=== PATIENT | female | born 1965 | race Caucasian/White ===

== ENCOUNTER → 2017-05-14 | Outpatient (CLI) | payer SELFPAY ==
[~2017-05-14] MED LIST: ALEVE220 M1 PO; AMBIEN10 MG PO; ATORVASTATIN CA10 MG PO; BIOTIN5 M1 PO; FERROUS GL324 ( 38 ) PO; METAXALONE800 M1 PO; MOBIC15 MG PO; REQUIP1 MG PO; SKELAXIN PO; SYNTHROID0.15 MG; VITAMIN D35000 UNI1 PO; ZOLOFT100 MG PO; ZYRTEC10 M2 PO
--- NOTE | ~2017-05-14 | CR97 ---
[facility] A Service of [facility] RADIOLOGY TEXT RESULTS PATIENT: THAD HERRERA LOCATION: [facility] : 65 UNIT #: [id number] AGE: [address]: Sourav Sterling MD SEX: F ORDER DR: [id number] [facility]. [place], [place] [address] [id number] O MR#: [id number] Acc #: [id number] NAME: THAD HERRERA : 1965 SEX: F STUDY DATE/TIME: 05/14/2017 8:49 UNIT: [facility] ROOM: STUDY DESCRIPTION: CR Esophagram Attending Physician: Sourav Sterling M.D. Referring Physician: Sourav Sterling M.D. Ordering Physician: Sourav Sterling M.D. Primary Care Physician: Sourav Sterling M.D. MEDICAL IMAGING REPORT This report is preliminary unless electronic signature is present EXAM Esophagram. INDICATIONS Dysphasia. Nausea in the mornings. Occasional vomiting. 3 months duration. FINDINGS Double contrast esophagram was performed. The mucosa of the esophagus is within normal limits. There is no significant mucosal abnormalities, stricture, mass, or extrinsic mass effect. Gastroesophageal junction is within normal limits. No gastroesophageal reflux is identified. There is some mild esophageal dysmotility in the distal one-third of the esophagus. 13 mm barium tablet swallowed without difficulty. Fluoroscopic time 1.4 minutes, 21 images acquired. IMPRESSION Mild esophageal dysmotility, otherwise negative esophagram. Dictated by... Daron Valenzuela M.D. THIS IS AN ELECTRONICALLY VERIFIED REPORT Daron Valenzuela M.D. at 05/14/2017 2:40 PM RPC/ritar TD: 05/14/2017 13:44 JOB #: [id number] MEDICAL IMAGING REPORT Page 1 of 1 COPY
--- NOTE | ~2017-05-14 | CT5 ---
[facility] A Service of [facility] RADIOLOGY TEXT RESULTS PATIENT: THAD HERRERA LOCATION: [facility] : 65 UNIT #: [id number] AGE: [address]: Sourav Sterling MD SEX: F ORDER DR: [id number] [address] [address] [id number] O MR#: [id number] Acc #: [id number] NAME: THAD HERRERA : 1965 SEX: F STUDY DATE/TIME: 05/14/2017 8:20 UNIT: [facility] ROOM: STUDY DESCRIPTION: CT Abdomen W Cont Attending Physician: Sourav Sterling M.D. Referring Physician: Sourav Sterling M.D. Ordering Physician: Sourav Sterling M.D. Primary Care Physician: Sourav Sterling M.D. MEDICAL IMAGING REPORT This report is preliminary unless electronic signature is present EXAM CT abdomen INDICATIONS Elevated liver function test. Nausea and vomiting. Intermittent symptoms for [address] of the abdomen with p.o. and IV contrast (100 mL Isovue-370 IV contrast). Coronal and sagittal reconstructions were obtained. This CT exam was performed with one or more of the following radiation dose reduction techniques: automatic exposure control, adjustment of mA and/or kV according to patient size, and iterative reconstruction. COMPARISON Right upper quadrant ultrasound dated 10/10/2016. FINDINGS ABDOMEN: There is diffusely diminished attenuation throughout the hepatic parenchyma indicative of severe hepatic steatosis. There is mild hepatomegaly with the liver measuring at least 20 cm in length. There is mild focal fatty sparing adjacent to the gallbladder fossa. No intrahepatic or extrahepatic biliary dilatation. The gallbladder is not distended. The pancreas, spleen, adrenal glands, and kidneys are within normal limits. No hydronephrosis. The bowel is not dilated. No enlarged retroperitoneal or mesenteric lymph nodes. The appendix is normal. IMPRESSION Hepatic steatosis and hepatomegaly. [facility] A Service [facility] RADIOLOGY TEXT RESULTS PATIENT: THAD HERRERA LOCATION: [facility] : 65 UNIT #: [id number] AGE: [address]: Sourav Sterling MD SEX: F ORDER DR: Dictated by... Daron Valenzuela M.D. THIS IS AN ELECTRONICALLY VERIFIED REPORT Daron Valenzuela M.D. at 05/14/2017 5:00 PM JESÚS/mick TD: 05/14/2017 15:52 JOB #: [id number] MEDICAL IMAGING REPORT Page 1 of 1 COPY
== END | disposition home or self-care (01) ==
LOC: CCAT 07:00
DX: R79.89 Other specified abnormal findings of blood chemistry (principal); R13.10 Dysphagia, unspecified; K22.4 Dyskinesia of esophagus; K76.0 Fatty (change of) liver, not elsewhere classified
CPT/HCPCS: 74160; 74220; Q9967